=== PATIENT | female | born 1970 | race Caucasian/White ===

== ENCOUNTER 2017-03-18 13:28 | Observation (INO) ==
[2017-03-18] MEDS ORDERED: 0.9 % SODIUM CHLORIDE 1,000 ML IV ONE ×2 (14:02→14:10)
[2017-03-18] MEDS ORDERED: TRANEXAMIC ACID 1,000 MG/10 ML VIAL IV ONE (14:16)
[2017-03-18 14:39] LABS: Basophils # (Auto) 0.1 K/mcL (0.0-0.3); Basophils % (Auto) 0.6 % (0.0-2.0); Eosinophils # (Auto) 0.5 K/mcL (0.0-0.7); Eosinophils % (Auto) 3.7 % (0.0-7.0); Granulocytes % (Auto) 61.4 % (38.0-78.0); Lymphocytes # (Auto) 4.2 K/mcL (1.5-4.8); Lymphocytes % (Auto) 28.4 % (15.5-49.0); Mean Cell Volume 89.6 fL (80.0-100.0); Mean Corpuscular Hemoglobin 29.6 pg (26.0-34.0); Monocytes # (Auto) 0.9 K/mcL (0.1-0.9); Monocytes % (Auto) 5.9 % (1.0-12.0); Platelet Count 294 K/mcL (140-440); RBC 2.24 M/mcL (4.00-5.20); Red Cell Distribution Width 18.7 % (11.5-14.5)
[2017-03-18 14:48] LABS: ALT/SGPT 12 U/l (0-40); Albumin 3.7 gm/dL (3.2-5.2); Albumin/Globulin Ratio 1.2 (1.0-2.3); Alkaline Phosphatase 73 U/L (39-117); Blood Urea Nitrogen 48 mg/dl (6-20)
[2017-03-18] MEDS ORDERED: PHYTONADIONE 10 MG in 0.9 % SODIUM CHLORIDE 50 ML IV ONE (17:15)
--- NOTE | 2017-03-18 17:32 | Emergency Department Note ---
Female Urogenital HPI - General Chief complaint: Weakness Stated complaint: Vaginal bleeding 3 weeks Time Seen by Provider: 03/18/17 13:41 Source: patient Mode of arrival: ambulatory Limitations: no limitations - History of Present Illness HPI Narrative: 47-year-old female with lightheadedness for the last 3 days worse with standing up. She reports being on her menses for the last 3 weeks as well with heavy bleeding soaking up to 10 pads plus tampons daily. Low Blood pressure noted today the 80/50. Does not see an STUNT PERSON but gets her Pap smears with her family doctor. She is on warfarin for atrial fibrillation and is therapeutic - Related Data Home Medications Medication Instructions Recorded Confirmed cholecalciferol (vitamin D3) 2,000 6,000 unit PO QDAY 01/04/17 03/18/17 unit capsule ferrous sulfate 325 mg (65 mg 325 mg PO BID 01/04/17 03/18/17 iron) tablet,delayed release insulin lispro protamine-lispro See Label Instructions SUB-Q QAM 01/04/17 100 unit/mL (75-25) subcutaneous pen magnesium oxide 400 mg capsule 400 mg PO BID 01/04/17 03/18/17 metoprolol succinate ER 100 mg 50 mg PO BID tab 01/04/17 03/18/17 tablet,extended release 24 hr spironolactone 25 mg tablet 25 mg PO QDAY 01/04/17 03/18/17 thiamine HCl (vitamin B1) 100 mg 200 mg PO QDAY tab 01/04/17 03/18/17 tablet warfarin 3 mg tablet 3 mg PO QDAY tab 01/04/17 03/18/17 psyllium seed (sugar) oral powder 1 tbsp PO QDAY 02/05/17 03/18/17 furosemide 40 mg tablet 40 mg PO QDAY tab 03/13/17 03/18/17 Previous Rx's Medication Instructions Recorded Glucometer- Accu-check #1 each 11/29/15 lancets See Dose Instructions .ROUTE 12/01/15 .MEDSUPPLY #100 each blood sugar diagnostic strips See Dose Instructions .ROUTE 02/01/16 .MEDSUPPLY #60 each albuterol sulfate HFA 90 2 puff INHALATION Q6H PRN #18 g 03/05/16 mcg/actuation aerosol inhaler Nebulizer with tubing and #1 each 09/25/16 accessories beclomethasone dipropionate 80 2 puff INHALATION BID #8.7 g 09/27/16 mcg/actuation aerosol inhaler albuterol sulfate 2.5 mg/3 mL 2.5 mg INHALATION .Q4-6H PRN #3 ml 10/01/16 (0.083 %) solution for nebulization lisinopril 10 mg tablet 5 mg PO BID #30 tab 01/04/17 Allergies Allergy/AdvReac Type Severity Reaction Status Date / Time Latex, Natural Rubber Allergy Unknown Unknown Verified 03/18/17 13:34 heparin AdvReac Other Verified 03/18/17 13:34 metformin AdvReac Abdominal Verified 03/18/17 13:34 Pain walnuts Allergy Unknown Unknown Uncoded 03/13/17 14:57 Review of Systems All systems ED: reviewed and negative except as stated. Past Medical History - Past Medical History Attestation: Yes: The following information was validated with the patient. Medical history: Reports: asthma, atrial fibrillation, CHF (Cardiomyopathy), diabetes, hyperlipidemia, hypertension, migraine, other (IBS. Morbid obesity. HIT syndrome) Surgical history ED: Reports: appendectomy, tonsillectomy, other (eye) Psychiatric history: Reports: depression - Social History smoking status: Former smoker Physical Exam Morbidly obese female no acute distress resting comfortably. Appears generally fatigued and weak. Normocephalic atraumatic. Conjunctive are clear sclerae nonicteric. No nasal discharge or congestion. Oropharynx is pink and moist. Neck is supple without lymphadenopathy or thyromegaly or carotid bruit heard heart is regular rate and rhythm no murmurs appreciated. Lungs clear to auscultation bilaterally without wheezes rales rhonchi or respiratory distress. Abdomen soft nontender nondistended except right lower quadrant mild diffuse. No peritoneal signs or guarding. No pedal edema. +2 radial pulse. Alert oriented able to answer questions appropriately - General Limitations: no limitations Course Vital Signs Temperature 97.3 F 03/18/17 13:29 Pulse Rate 79 03/18/17 13:29 Respiratory Rate 16 03/18/17 13:29 Blood Pressure 107/66 03/18/17 13:29 Pulse Oximetry (%) 99 03/18/17 13:29 Temperature 97.9 F 03/19/17 04:00 Pulse Rate 88 03/19/17 04:00 Respiratory Rate 18 03/19/17 04:00 Blood Pressure 97/51 03/19/17 04:00 Pulse Oximetry (%) 97 03/19/17 04:00 Urogenital-Female - Lab Data Lab results reviewed: Yes I reviewed the patient's lab results. Result diagrams: 03/19/17 03:40 03/19/17 03:40 Lab Results 03/18/17 03/18/17 03/18/17 Range/Units 14:06 14:06 14:06 WBC (4.5-11.0) K/mcL RBC (4.00-5.20) M/mcL Hgb (12.0-15.0) g/dL Hct (36.0-48.0) % MCV (80.0-100.0) fL MCH (26.0-34.0) pg MCHC (31.0-36.0) g/dL RDW (11.5-14.5) % Plt Count (140-440) K/mcL MPV (7.4-10.4) fL Gran % (38.0-78.0) % Lymph % (Auto) (15.5-49.0) % Harper % (Auto) (1.0-12.0) % Eos % (Auto) (0.0-7.0) % Baso % (Auto) (0.0-2.0) % Gran # (1.8-8.0) K/mcL Lymph # (1.5-4.8) K/mcL Harper # (0.1-0.9) K/mcL Eos # (0.0-0.7) K/mcL Baso # (0.0-0.3) K/mcL PT 26.3 H (11.9-14.5) sec INR 2.3 H (0.9-1.1) Fibrinogen 580 H (200-400) mg/dL VBG Lactic Acid (0.5-2.2) mmol/L Sodium 134 (133-145) mmol/L Potassium 5.1 (3.3-5.1) mmol/L Chloride 99 (96-108) mmol/L Carbon Dioxide 20 L (22-30) mmol/L Anion Gap 15.0 (8-16) BUN 48 H (6-20) mg/dl Creatinine 1.7 H (0.6-1.1) mg/dl GFR Calculation 35 Glucose 107 H (70-105) mg/dL Calcium 8.9 (8.6-10.4) mg/dl Total Bilirubin < 0.2 (0.0-1.0) mg/dL AST 10 (0-37) U/l ALT 12 (0-40) U/l Alkaline Phosphatase 73 (39-117) U/L NT-Pro-B Natriuret Pep 167.1 H (0-125) pg/ml Total Protein 6.7 (5.9-8.4) gm/dL Albumin 3.7 (3.2-5.2) gm/dL Globulin 3.0 (2.2-3.7) gm/dL Albumin/Globulin Ratio 1.2 (1.0-2.3) 03/18/17 03/18/17 Range/Units 14:07 14:21 WBC 14.7 H (4.5-11.0) K/mcL RBC 2.24 L (4.00-5.20) M/mcL Hgb 6.6 L* (12.0-15.0) g/dL Hct 20.0 L* (36.0-48.0) % MCV 89.6 (80.0-100.0) fL MCH 29.6 (26.0-34.0) pg MCHC 33.0 (31.0-36.0) g/dL RDW 18.7 H (11.5-14.5) % Plt Count 294 (140-440) K/mcL MPV 9.1 (7.4-10.4) fL Gran % 61.4 (38.0-78.0) % Lymph % (Auto) 28.4 (15.5-49.0) % Harper % (Auto) 5.9 (1.0-12.0) % Eos % (Auto) 3.7 (0.0-7.0) % Baso % (Auto) 0.6 (0.0-2.0) % Gran # 9.0 H (1.8-8.0) K/mcL Lymph # 4.2 (1.5-4.8) K/mcL Harper # 0.9 (0.1-0.9) K/mcL Eos # 0.5 (0.0-0.7) K/mcL Baso # 0.1 (0.0-0.3) K/mcL PT (11.9-14.5) sec INR (0.9-1.1) Fibrinogen (200-400) mg/dL VBG Lactic Acid 0.9 (0.5-2.2) mmol/L Sodium (133-145) mmol/L Potassium (3.3-5.1) mmol/L Chloride (96-108) mmol/L Carbon Dioxide (22-30) mmol/L Anion Gap (8-16) BUN (6-20) mg/dl Creatinine (0.6-1.1) mg/dl GFR Calculation Glucose (70-105) mg/dL Calcium (8.6-10.4) mg/dl Total Bilirubin (0.0-1.0) mg/dL AST (0-37) U/l ALT (0-40) U/l Alkaline Phosphatase (39-117) U/L NT-Pro-B Natriuret Pep (0-125) pg/ml Total Protein (5.9-8.4) gm/dL Albumin (3.2-5.2) gm/dL Globulin (2.2-3.7) gm/dL Albumin/Globulin Ratio (1.0-2.3) - EKG Data EKG attestation: Yes I reviewed and interpreted this EKG. EKG results narrative: EKG shows a rate of 76 normal sinus rhythm low voltage leads though. No evidence for ischemia Disposition Clinical Impression: Menometrorrhagia Summary: Found to be weak and lightheaded from low blood pressure secondary to hemorrhagic anemia-this secondary to metromenorrhagia. Fluid resuscitation with normal saline initiated. Then did 1000 mg of Tranexamic acid. INR was 2.3 but in light of her current bleeding, gave 10 mg vitamin K IV. Discussed situation with Dr. Calderon, STUNT PERSON, who agreed with management plan above plus transfusion-which was ordered and transfused to hold to packed red blood cells. Blood pressure stabilized with above-noted interventions and patient noted that her flow decreased markedly Discussed situation as well with Dr. Price, who agreed to accept the patient for confusion and further care on condition of Dr. Calderon's consult. Dr. Price contacted Dr. Calderon directly and patient was admitted Disposition: Xfer As Outpt/Obs ([facility]) Condition: Serious
--- NOTE | 2017-03-18 17:54 | Internal Med History&Physical ---
Medical - H&P: HPI Patient information: Note initiated : 03/18/17 at 5:42 pm Service Date, if different from initiated Date: [] Patient: Yseica Helms 47 y/o F admitted on for Vaginal bleeding 3 weeks. Chief Complaint: [] Chief complaint: Dizziness/ Weakness/ Bleeding per Vagina. History of present illness: Ms. Helms is a 47 year old female with h/o non ischemic cardiomyopathy, Aflutter , DM, morbid obesity, presents to the ER with weakness, dizziness and bleeding per vagina. The patient has been diagnosed with CHF in the last 6-8 months, she was placed on coumadin, which has remained subtherapeutic untill approx 2 months ago. The patient notes that when she became therapeutic her periods started to become heavy. She usually has heavy periods, lasting 4 days, however her last period was 14 days, with very heavy bleeding, and the present one has not stopped for 3 weeks, she is using 10 pads and 10 tampons, and passing heavy clots, some of which are fist size. She has not been feeling well for last few days, with weakness, tiredness, some nausea and dizziness. she was seen in the ER in [facility] and thought to have some ear infection. Symptomatic treatment given, Hb was 10.7 on 03/13. given her worsening symptoms she presented here in the ER and she was noted to have hb of 6.6. INR is therapeutic Chart review shows she has CT abdomen pelvis which showed a 7 cm cystic mass in the left adnexa last year, Pelvic USG showed a 5mm endometrium and 5.1x5.3 adnexal cyst probably benigh. Echo done 12/14 LVEF 25%, Cath in nov shows mild cad. All systems: reviewed and no additional remarkable complaints except as stated ( as mentioned in the HPI.) Medical - H&P: [place] Medical history: Medical History (Last Updated 03/18/17 @ 17:54 by Jason Price MD) Atrial flutter (Acute) Acute embolism and thrombosis of superficial veins of unspecified upper extremity (Chronic) Agoraphobia, unspecified (Chronic) Asthma (Chronic) Congestive heart failure (Chronic) Depression (Chronic) Diabetes mellitus, type II (Chronic) Dilated cardiomyopathy (Chronic) Heparin-induced thrombocytopenia (Chronic) Hyperlipidemia (Chronic) Hypertension (Chronic) IBS (irritable bowel syndrome) (Chronic) Migraine (Chronic) Obesity, morbid (Chronic) Seasonal allergies (Chronic) Acute kidney failure, unspecified (Resolved) Asthma with exacerbation (Resolved) Atherosclerotic heart disease of [place] coronary artery without angina pectoris (Resolved) Bronchitis (Resolved) Cardiogenic shock (Resolved) Cat bite of right lower leg (Resolved) Chest pain (Resolved) Diplopia (Resolved) Dysmenorrhea (Resolved) Encounter for palliative care (Resolved) Encounter for wellness examination (Resolved) Morbid (severe) obesity due to excess calories (Resolved) Other assisted (current) drug therapy (Resolved) Other secondary pulmonary hypertension (Resolved) Personal history of nicotine dependence (Resolved) Post-traumatic stress disorder, unspecified (Resolved) Urinary tract infection (Resolved) Surgical history: Past Surgical History (Last Updated 03/14/17 @ 14:15 by [place]) History of appendectomy (Chronic) History of eye surgery (Chronic) History of left heart catheterization (Chronic 12/05/16) History of right heart catheterization (Chronic 11/23/16) Pertinent family history: Family history of DM Fragile X syndrome 2 sisteres, pt has it too. Medical - H&P: Meds Home Medications Medication Instructions Recorded Confirmed Type Glucometer- Accu-check #1 each 11/29/15 02/05/17 Rx lancets See Dose Instructions .ROUTE 12/01/15 02/05/17 Rx .MEDSUPPLY #100 each blood sugar diagnostic strips See Dose Instructions .ROUTE 02/01/16 02/05/17 Rx .MEDSUPPLY #60 each albuterol sulfate HFA 90 2 puff INHALATION Q6H PRN #18 g 03/05/16 03/13/17 Rx mcg/actuation aerosol inhaler Nebulizer with tubing and #1 each 09/25/16 02/05/17 Rx accessories beclomethasone dipropionate 80 2 puff INHALATION BID #8.7 g 09/27/16 03/13/17 Rx mcg/actuation aerosol inhaler albuterol sulfate 2.5 mg/3 mL 2.5 mg INHALATION .Q4-6H PRN #3 ml 10/01/16 Rx (0.083 %) solution for nebulization cholecalciferol (vitamin D3) 2,000 6,000 unit PO QDAY 01/04/17 03/13/17 History unit capsule ferrous sulfate 325 mg (65 mg 325 mg PO BID 01/04/17 03/13/17 History iron) tablet,delayed release insulin lispro protamine-lispro See Label Instructions SUB-Q QAM 01/04/17 History 100 unit/mL (75-25) subcutaneous pen lisinopril 10 mg tablet 5 mg PO BID #30 tab 01/04/17 03/13/17 Rx magnesium oxide 400 mg capsule 400 mg PO BID 01/04/17 03/13/17 History metoprolol succinate ER 100 mg 50 mg PO BID tab 01/04/17 03/13/17 History tablet,extended release 24 hr spironolactone 25 mg tablet 25 mg PO QDAY 01/04/17 03/13/17 History thiamine HCl (vitamin B1) 100 mg 200 mg PO QDAY tab 01/04/17 03/13/17 History tablet warfarin 3 mg tablet 6 mg PO QDAY tab 01/04/17 03/13/17 History psyllium seed (sugar) oral powder 1 tbsp PO QDAY 02/05/17 03/13/17 History furosemide 40 mg tablet 40 mg PO QDAY tab 03/13/17 03/13/17 History Allergies Allergy/AdvReac Type Severity Reaction Status Date / Time Latex, Natural Rubber Allergy Unknown Unknown Verified 03/18/17 13:34 heparin AdvReac Other Verified 03/18/17 13:34 metformin AdvReac Abdominal Verified 03/18/17 13:34 Pain walnuts Allergy Unknown Unknown Uncoded 03/13/17 14:57 Medical - H&P: Exam - Constitutional Vitals: Temp Pulse Resp BP Pulse Ox 97.3 F 87 16 104/51 100 03/18/17 13:29 03/18/17 17:32 03/18/17 17:32 03/18/17 17:32 03/18/17 17:32 Exam: GENERAL: The patient is a well-developed, well-nourished in no apparent distress. Is alert and oriented x3. Morbidly obese VITAL SIGNS: Reviewed and as noted elsewhere. HEENT: Head is normocephalic and atraumatic. Extraocular muscles are intact. Pupils are equal, round, and reactive to light. Nares appeared normal. Mouth appears any without lesions. Mucous membranes are dry and pale. NECK: Normal to inspection, Supple, No lymphadenopathy or thyromegaly. LUNGS: Air entry equal on both sides, no wheezing, crackles or rhonchi noted. No accessory muscles of respiration HEART: normal rate, irregular rhythm, S1 and S2 heard, no Gallop, S3 or Rub Noted. ABDOMEN: Soft, Positive bowel sounds. No obvious hepatosplenomegaly was noted. Large pennus, chr left lower quadrant tenderness. EXTREMITIES: No cyanosis, clubbing, rash, lesions or edema. NEUROLOGIC: Cranial nerves II through XII are grossly intact. Motor and Sensory System Grossly Intact PSYCHIATRIC: Normal affect, Normal Mood. Appropriate Behavior. SKIN: No ulceration or wounds noted, No jaundice, No rash noted. significant pallor noted. Medical - H&P: [place] - Labs CBC & Chem 7: 03/18/17 14:07 03/18/17 14:06 Labs: Short CBC 03/18/17 Range/Units 14:07 WBC 14.7 H (4.5-11.0) K/mcL Hgb 6.6 L* (12.0-15.0) g/dL Hct 20.0 L* (36.0-48.0) % Plt Count 294 (140-440) K/mcL BMP 03/18/17 14:06 Sodium 134 Potassium 5.1 Chloride 99 Carbon Dioxide 20 L BUN 48 H Creatinine 1.7 H Glucose 107 H Calcium 8.9 Liver Function 03/18/17 Range/Units 14:06 Total Bilirubin < 0.2 (0.0-1.0) mg/dL AST 10 (0-37) U/l ALT 12 (0-40) U/l Alkaline Phosphatase 73 (39-117) U/L Albumin 3.7 (3.2-5.2) gm/dL Medical - H&P: A/P - Narrative A/P Narrative: A/P Acute blood loss anemia: Hb 6.6, acute drop in CHF patient, transfuse pRBC 3 units total to try to get to hb of around 9 given h/o severe chf and acute loss of blood. . Monitor on tele given her h/o heart failure and significant anemia. 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 Chronic Anticoagulation: INR 2.3, vit K given, monitor INR, Atrial Flutter: On beta blockers, rate controlled, resume same once dose confirmed, will try to get in touch with Dr jorge in AM for guidance, his office was closed when I called today. Non ischemic Cardiomyopathy: Will resume home meds once confirmed, monitor on tele. CKD: Creat 1.7, follows with Dr Monroy in the clinic, will monitor, expect renal function to worsen given hypotensive on presentation. DM: on insulin, Sliding scale protocol for now. Morbid Obesity DVT prophylaxis: SCD for now, h/o RODRIGUE Diet: Cardiac, diabetic diet Full code for now. Social History - Social History adopted: No caregiver/support person: No foster care: No household members: spouse, family housing: house lives independently: Yes marital status: education level: high school service: No chcf: No occupational status: disabled pets and animals: Yes hx recent travel: No sexually active: Yes - Pets pets and animals: cat(s), dog(s) - Tobacco smoking status: Former smoker - Alcohol alcohol intake frequency: holiday/special occasion only - Substance use substance use type: does not use
[2017-03-18] MEDS ORDERED: ONDANSETRON 4 MG/2 ML VIAL IV PRN (18:31)
[2017-03-18] MEDS ORDERED: MAGNESIUM HYDROXIDE 30 ML ORAL.SUSP PO PRN (18:31)
[2017-03-18] MEDS ORDERED: 0.9 % SODIUM CHLORIDE 250 ML IV SCH (18:31)
[2017-03-18] MEDS ORDERED: NALOXONE HCL 0.4 MG/ML VIAL IV PRN (18:31)
[2017-03-18] MEDS ORDERED: DEXTROSE 50% 50 ML VIAL IV PRN (18:31)
[2017-03-18] MEDS: INSULIN LISPRO 1 UNIT/0.01 ML UNIT SQ SCH (20:55)
[2017-03-18] MEDS ORDERED: ALBUTEROL SULFATE 2.5 MG/3 ML NEBULIZER NEB PRN (21:02)
[2017-03-18] MEDS: LISINOPRIL 10 MG TABLET PO SCH (21:30)
[2017-03-18] MEDS: METOPROLOL SUCCINATE 50 MG TAB.XL.24H PO SCH (21:35)
[2017-03-18] MEDS: BECLOMETHASONE DIPROPIONATE INH SCH (21:35)
--- NOTE | 2017-03-18 22:44 | Consultation ---
DATE OF CONSULTATION: 03/18/2017 CHIEF COMPLAINT: Heavy vaginal bleeding, fatigue, anemia. HISTORY: This patient is a 47-year-old, nulligravid female presenting to the emergency room after being seen for cardio therapy today at [facility] in [place], and because of feeling poorly was told to go the emergency room. The patient has had heavy vaginal bleeding for the past 2 to 3 weeks, starting approximately 03/02, although is somewhat fleet technician today. She goes through at least 10 pads per day and also has to use tampons. Her blood count in the emergency room showed hemoglobin of 6.6. She had been seen in the [facility] ER on 03/12 with a hemoglobin of 10.1. The patient notes increasing lightheadedness for the past 5 days with visual changes and fatigue. Prior to January, she had regular menstrual cycles that were heavy and lasted 4 days. She and her feel that her menstrual cycles are heavier now that she is on Coumadin. She was admitted in the ICU in November of this year due to congestive heart failure. She also notes significant uterine cramping and is not using any control. She had an ultrasound and CT scan over a year ago because abdominal pain. The ultrasound showed an enlarged uterus measuring 5 x 6.4 x 9.2 cm with at least 2 fibroids, the largest measuring up to 2.5 cm. They were located in the mid body and in a subserosal location in the upper fundus. There also appears to be a small submucosal fibroid in the upper fundal area. The endometrium at that point was 5.8 mm with no fluid in the endometrial canal. The right ovary measured up to 4.5 cm in size with a septated cyst measuring 1.4 cm. The left ovary was not clearly visualized, but in the left upper pelvis, seen only transabdominally, there was a circumscribed cyst with benign features measuring 5.3 cm. This had a thin wall with no ovarian tissue appreciated. She has not had any followup ultrasound studies since that ultrasound in January 2016. She is currently admitted under the care of hospitalist of Dr. Price for transfusion and has received tranexamic acid intravenously from the Emergency Room physician. She is hopeful to obtain cardiac ablation for her atrial fibrillation when she has further cardiac rehabilitation. PAST MEDICAL HISTORY: 1. Congestive heart failure, diagnosed in May 2016. 2. Type 2 diabetes, now on insulin for the past 5 months, diagnosed 2 to 3 years ago. 3. Atrial fibrillation. 4. Morbid obesity. PAST SURGICAL HISTORY: 1. Appendectomy. 2. Tonsillectomy and adenoidectomy. 3. Eye surgery as a child. CURRENT MEDICATIONS: Ferrous sulfate 325 mg 1 tablet twice daily. Furosemide 40 mg 1 tablet daily. Insulin lispro 75/25 at 24-48 units under the skin 2 times daily with breakfast and dinner. Lisinopril 5 mg by mouth twice daily. Magnesium oxide 400 mg 1 tablet by mouth twice daily. Metoprolol 100 mg ER tablets 50 mg twice daily. Potassium chloride 20 mEq CR tablet 20 mg by mouth. every day QVAR 80 mcg per puff inhaler 2 times daily. Spironolactone 25 mg 1 tablet by mouth daily. Thiamine 100 mg 2 tablets by mouth daily. Warfarin 3 mg tablets one tablet at bedtime. DRUG ALLERGIES: HEPARIN, MORPHINE SULFATE. OB HISTORY: The patient is nulligravid. Menarche occurred at age 13. She had regular menses that were occasionally heavy, as noted above. There is no history of STDs or cervical dysplasia. SOCIAL HISTORY: The patient is disabled and unemployed. She denies current tobacco use and quit in 1987. Prior to that, she smoked about a pack per week for 4 years. She drinks alcohol rarely and denies recreational drug use. FAMILY HISTORY: Diabetes, heart problems. REVIEW OF SYSTEMS: The patient complains of fatigue, shortness of breath, but no chest pain. She is dizzy. Denies headache. Review of systems otherwise negative. PHYSICAL EXAMINATION: VITAL SIGNS: 5 feet 3 inches, 306 pounds. Blood pressure 107/66, pulse 79, respiratory rate 16, temperature 97.3. GENERAL: She is a pleasant, obese female lying comfortably in bed. HEAD AND NECK: Exam is within normal limits. There is no thyromegaly appreciated. HEART: Regular rate and rhythm. LUNGS: Clear to auscultation with normal inspiratory effort. BREAST EXAM: Deferred. ABDOMEN: Morbidly obese, tender in the midline and right lower quadrant. EXTREMITY EXAM: Appears normal. PELVIC EXAM: Deferred due to lack of appropriate exam room for this evaluation. IMPRESSION: 1. Menometrorrhagia with severe anemia. 2. History of uterine fibroids. 3. History of a 5 cm left adnexal cyst, possibly ovarian. 4. Congestive heart failure. 5. Atrial fibrillation. 6. Morbid obesity. 7. Type 2 diabetes requiring insulin. PLAN: The patient will be admitted for observation and receive 2 units of packed red blood cells. She has received tranexamic acid IV with decreased vaginal bleeding and then this will be closely monitored. There would also be an option to use oral estrogen or IV estrogen. This could be in the form of IV Premarin or oral Premarin or estradiol in high doses to further decrease her heavy vaginal bleeding. Following discharge, I would recommend a pelvic exam and endometrial biopsy. I would also recommend a pelvic ultrasound while the patient is admitted for observation to further evaluate this left adnexal cyst and for any changes in the uterine size with fibroids. I discussed with the patient and her significant other, other treatment options beyond her hospitalization and this will be determined after gynecologic outpatient to follow up. RAYSHAWN:sai Job ID: [id number] Doc ID: [id number] Tyrese MILLER
[2017-03-19] MEDS: ACETAMINOPHEN 325 MG TABLET PO PRN ×3 (00:35→09:21)
[2017-03-19 06:04] LABS: Mean Cell Volume 89.9 fL (80.0-100.0); Mean Corpuscular HGB Conc 33.4 g/dL (31.0-36.0); Platelet Count 243 K/mcL (140-440); RBC 2.55 M/mcL (4.00-5.20); Red Cell Distribution Width 17.1 % (11.5-14.5)
[2017-03-19 06:29] LABS: ALT/SGPT 10 U/l (0-40); Albumin 3.2 gm/dL (3.2-5.2); Albumin/Globulin Ratio 1.2 (1.0-2.3); Alkaline Phosphatase 66 U/L (39-117); Bilirubin,Direct < 0.2 mg/dL (0.0-0.3); Blood Urea Nitrogen 36 mg/dl (6-20); Gamma Glutamyl Transpeptidase 29 U/L (5-36); Magnesium 2.2 mg/dL (1.6-2.5); Uric Acid 11.9 mg/dL (2.5-8.0)
[2017-03-19] MEDS ORDERED: 0.9 % SODIUM CHLORIDE 250 ML IV SCH (07:00)
[2017-03-19 07:40] LABS: Anisocytosis 1+ (NONE SEEN); Basophils % (Manual) 1 % (0-2); Eosinophils % (Manual) 7 % (0-7); Lymphocytes % 21 % (15-49); Monocytes % (Manual) 3 % (1-12); Platelet Estimate NORMAL (NORMAL); RBC Morphology ABNORM (NORMAL); Segmented Neutrophils % 68 % (38-78)
[2017-03-19] MEDS: FERROUS SULFATE 325 MG TABLET PO SCH ×2 (08:29→17:07)
[2017-03-19] MEDS: INSULIN LISPRO 1 UNIT/0.01 ML UNIT SQ SCH ×4 (08:30→21:17)
[2017-03-19] MEDS: MAGNESIUM OXIDE 400 MG TABLET PO SCH ×2 (09:56→21:17)
[2017-03-19] MEDS: LISINOPRIL 10 MG TABLET PO SCH ×2 (09:57→21:17)
[2017-03-19] MEDS: SPIRONOLACTONE 25 MG TABLET PO SCH (09:57)
[2017-03-19] MEDS: THIAMINE 100 MG TABLET PO SCH (10:04)
[2017-03-19] MEDS: FUROSEMIDE 40 MG TABLET PO SCH (10:04)
[2017-03-19] MEDS: VITAMIN D3 5,000 UNIT CAPSULE PO SCH (10:04)
[2017-03-19] MEDS: BECLOMETHASONE DIPROPIONATE INH SCH ×2 (10:05→21:18)
[2017-03-19] MEDS: METOPROLOL SUCCINATE 50 MG TAB.XL.24H PO SCH ×2 (10:05→21:17)
[2017-03-19] MEDS ORDERED: HYDROmorphone 2 MG/ML SYRINGE IV PRN (12:24)
[2017-03-19] MEDS ORDERED: FUROSEMIDE 40 MG/4 ML VIAL IV ONE ×2 (12:29→12:31)
[2017-03-19] MEDS ORDERED: IPRATROPIUM/ALBUTEROL 3 ML AMPUL.NEB NEB ONE (12:32)
[2017-03-19] MEDS: IPRATROPIUM/ALBUTEROL 3 ML AMPUL.NEB NEB SCH ×4 (12:53→22:00)
--- NOTE | 2017-03-19 13:11 | XRay Report ---
CLINICAL INFORMATION: Shortness of breath COMPARISON: 11/21/2016 FINDINGS: Mild cardiomegaly is noted. Mediastinum and pulmonary vessels are normal. There is mild airspace disease in the right base - likely atelectasis. No effusions. IMPRESSION: Mild airspace disease right base, likely atelectasis, otherwise normal Interpreted and Authenticated by: Mark Schaeffer 03/19/17
[2017-03-19] MEDS: methylPREDNISolone SOD SUCC 125 MG/2 ML VIAL IV SCH ×3 (14:37→22:25)
--- NOTE | 2017-03-19 15:03 | Internal Med Progress Note ---
Medical - PN: Subj Patient information: Note initiated : 03/19/17 at 2:57 pm Service Date, if different from initiated Date: [] Patient: Yesica Helms 47 y/o F admitted on 03/18/17 for Vaginal Bleeding 3 Weeks/Menometrorrhagia. Chief Complaint: [] Interval history: Ms. Helms is a 47 year old female with h/o non ischemic cardiomyopathy, Aflutter , DM, morbid obesity, presents to the ER with weakness, dizziness and bleeding per vagina. The patient has been diagnosed with CHF in the last 6-8 months, she was placed on coumadin, which has remained subtherapeutic untill approx 2 months ago. The patient notes that when she became therapeutic her periods started to become heavy. She usually has heavy periods, lasting 4 days, however her last period was 14 days, with very heavy bleeding, and the present one has not stopped for 3 weeks, she is using 10 pads and 10 tampons, and passing heavy clots, some of which are fist size. She has not been feeling well for last few days, with weakness, tiredness, some nausea and dizziness. she was seen in the ER in [facility] and thought to have some ear infection. Symptomatic treatment given, Hb was 10.7 on 03/13. given her worsening symptoms she presented here in the ER and she was noted to have hb of 6.6. INR is therapeutic Chart review shows she has CT abdomen pelvis which showed a 7 cm cystic mass in the left adnexa last year, Pelvic USG showed a 5mm endometrium and 5.1x5.3 adnexal cyst probably benigh. Echo done 12/14 LVEF 25%, Cath in nov shows mild cad. 03/19: patient seen examined, labs reviewed and discussed with pt and significant other, she was doing well this AM however later in the morning she developed shortness of breath, chest tightness while on the second unit of blood. she was to receive 2 additional units of blood because her hb was 7.6 this AM She tolerated the first unit ok, during the infusion of the second unit of blood the patient developed chest tightness, shortness of breath, she was cyring and sobbing. The patient also reported closing of airways. I examined the patient, she had poor air entry. prolonged exp phase, she was anxious, but not in respiratory distress, her oral pharayngeal mucosa was normal , no stridor was noted. blood transfusion halted, CXR done (neg) duonebs given, IV steroids given. EKG and trop was neg. Patient later informed that she has had a similar episode to a perfume in the past and its likely this is what happened. the patient responded to treatment within 30 mins and was back to baseline. She has not had any PV bleeding since this AM. Pertinent ROS: Denies headache, dizziness chest tightness present, no chest pain Denies cough but present shortness of breath this AM Denies abdominal pain, nausea or vomiting. - Constitutional Vitals: Vital Signs Temp Pulse Resp BP Pulse Ox 97.6 F 78 18 105/43 98 03/19/17 12:00 03/19/17 12:54 03/19/17 12:00 03/19/17 12:00 03/19/17 12:53 Period Temp Pulse Resp BP Sys/Hill Pulse Ox Last 24 Hr 97.6 F-98.6 F 78-94 16-18 96-105/43-64 96-100 Intake and Output 03/19/17 03/19/17 03/19/17 05:59 13:59 21:59 Output Total 1100 / 1100 650 / 650 200 / 200 Balance -1100 / -1100 -650 / -650 -200 / -200 Intake & Output: Intake & Output 03/19/17 03/19/17 03/19/17 05:59 13:59 21:59 Output Total 1100 / 1100 650 / 650 200 / 200 Balance -1100 / -1100 -650 / -650 -200 / -200 Output: Void Amount 1100 / 1100 650 / 650 200 / 200 Other: # Voids 1 1 # Bowel Movements 1 1 Exam: Constitutional; Afebrile, cooperative, alert, not in distress. Eyes- No icterus, , No periorbital swelling Ears- Ext ear normal, hearing normal to conversation. Neck- Midline trachea, supple Respiratory system: Air Entry decreased on both sides, prolonged exp phase, no crackles CVS- Rate rhythm regular, S1,S2 heard, no gallop, no rub. Abdomen- Soft nontender abdomen, no organomegaly, no tenderness, no guarding or rigidity, FIELD BROOMER- AOOx3, moving all extremities, no gross focal deficit noted. Medical - PN: Obj Da - Labs CBC & Chem 7: 03/19/17 03:40 03/19/17 03:40 Labs: Abnormal Lab Results 03/19/17 03/19/17 03/19/17 03:45 03:40 03:40 WBC 13.8 H RBC 2.55 L Hgb 7.6 L Hct 22.9 L RDW 17.1 H RBC Morphology Abnorm A Polychromasia Few A Anisocytosis 1+ A PT 16.2 H INR 1.3 H Carbon Dioxide 19 L BUN 36 H Creatinine 1.3 H Glucose 108 H Uric Acid 11.9 H Phosphorus 4.6 H Total Protein 5.8 L Triglycerides 206 H 03/18/17 20:50 WBC RBC Hgb 8.0 L Hct 24.6 L RDW RBC Morphology Polychromasia Anisocytosis PT INR Carbon Dioxide BUN Creatinine Glucose Uric Acid Phosphorus Total Protein Triglycerides Meds: Medications Acetaminophen (Tylenol) 650 mg PO Q6HP PRN PRN Reason: PAIN/FEVER > 101 Last Admin: 03/19/17 09:21 Dose: 650 mg Albuterol Sulfate (Ventolin) 2.5 mg NEB Q4-6HP PRN PRN Reason: shortness of breath/wheezing Albuterol/Ipratropium (Duoneb) 3 ml NEB Q4HRT [facility] Last Admin: 03/19/17 12:53 Dose: Not Given Dextrose (Dextrose 50%) 0 ml IV UD PRN PRN Reason: Hypoglycemia Diagnostic Test (Pha) (Accu-Chek) [address] [facility] Last Admin: 03/19/17 12:13 Dose: 1 each Ferrous Sulfate (Ferrous Sulfate) 325 mg PO BIDCC [facility] Last Admin: 03/19/17 08:29 Dose: 325 mg Furosemide (Lasix) 40 mg PO QDAY [facility] Last Admin: 03/19/17 10:04 Dose: 40 mg Hydromorphone HCl (Dilaudid) 0.5 mg IV Q2HP PRN PRN Reason: Pain Sodium Chloride (Sodium Chloride 0.9%) 250 mls @ 20 mls/hr IV .[id number] [facility] Stop: 03/19/17 19:29 Last Admin: 03/19/17 09:21 Dose: 20 mls/hr Insulin Human Lispro (Humalog) [address] [facility] PRN Reason: Protocol Last Admin: 03/19/17 12:14 Dose: Not Given Lisinopril (Zestril) 5 mg PO BID [facility] Last Admin: 03/19/17 09:57 Dose: 5 mg Magnesium Hydroxide (Milk Of Magnesia) 30 ml PO DAILYP PRN PRN Reason: Constipation Magnesium Oxide (Magnesium Oxide) 400 mg PO BID [facility] Last Admin: 03/19/17 09:56 Dose: 400 mg Methylprednisolone Sodium Succinate (Solu-Medrol) 62.5 mg IV Q8 [facility] Last Admin: 03/19/17 14:37 Dose: 62.5 mg Metoprolol Succinate (Toprol Xl) 50 mg PO BID [facility] Last Admin: 03/19/17 10:05 Dose: 50 mg Naloxone HCl (Narcan) 0.1 mg IV Q2MIN PRN PRN Reason: Opiate Reversal Ondansetron HCl (Zofran) 4 mg IV Q4HP PRN PRN Reason: Nausea And Vomiting Beclomethasone Dipropionate Oral Inhlaer 2 dose INH BID [facility] Last Admin: 03/19/17 10:05 Dose: Not Given Spironolactone (Aldactone) 25 mg PO QDAY [facility] Last Admin: 03/19/17 09:57 Dose: 25 mg Thiamine HCl (Vitamin B1) 200 mg PO DAILY [facility] Last Admin: 03/19/17 10:04 Dose: 200 mg Vitamin D (Vitamin D3) 5,000 unit PO DAILY [facility] Last Admin: 03/19/17 10:04 Dose: 5,000 unit Medical - PN: A/P - Time Spent With Patient Total time spent is greater than 50% in coordination of care (as documented) at patient's floor/unit and/or counseling patient: - Narrative A/P Narrative: Acute blood loss anemia: Hb 7.6 this AM, another unit given, plus some of the second unit. patient appears much better, seems hemodynamically stable. Reactive airway disease: Due to perfume vs blood transfusion. 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 Dysfunctional Uterine bleed: BONDING AGENT consult appreciated. Bleed has stopped. Chronic Anticoagulation: INR 1.3, s/p vit k Atrial Flutter: On beta blockers, rate controlled, will follow up with cardiology on discharge. Non ischemic Cardiomyopathy: home meds resumed. CKD: Creat 1.3 improved, monitor DM: on insulin, Sliding scale protocol for now. Morbid Obesity DVT prophylaxis: SCD for now, h/o RODRIGUE Diet: Cardiac, diabetic diet Full code Medical - PN: Qual - VTE Deep Vein Thrombosis/Pulmonary Embolism Present on Admission: No
[2017-03-19 15:29] LABS: Mean Corpuscular HGB Conc 33.3 g/dL (31.0-36.0); Mean Corpuscular Hemoglobin 29.7 pg (26.0-34.0); Platelet Count 256 K/mcL (140-440); RBC 3.18 M/mcL (4.00-5.20); Red Cell Distribution Width 17.1 % (11.5-14.5)
[2017-03-20] MEDS: IPRATROPIUM/ALBUTEROL 3 ML AMPUL.NEB NEB SCH ×4 (02:39→15:44)
[2017-03-20 05:34] LABS: Mean Cell Volume 89.6 fL (80.0-100.0); Mean Corpuscular HGB Conc 33.5 g/dL (31.0-36.0); Platelet Count 255 K/mcL (140-440); RBC 3.17 M/mcL (4.00-5.20)
[2017-03-20] MEDS: methylPREDNISolone SOD SUCC 125 MG/2 ML VIAL IV SCH ×2 (05:40→13:50)
[2017-03-20 06:09] LABS: ALT/SGPT 11 U/l (0-40); Albumin 3.7 gm/dL (3.2-5.2); Albumin/Globulin Ratio 1.1 (1.0-2.3); Alkaline Phosphatase 73 U/L (39-117); Bilirubin,Direct < 0.2 mg/dL (0.0-0.3); Blood Urea Nitrogen 37 mg/dl (6-20); Gamma Glutamyl Transpeptidase 34 U/L (5-36); Magnesium 1.9 mg/dL (1.6-2.5); Uric Acid 13.5 mg/dL (2.5-8.0)
[2017-03-20 07:39] LABS: Anisocytosis 1+ (NONE SEEN); Band Neutrophils % 3 % (0-10); Lymphocytes % 10 % (15-49); Macrocytosis 1+ (NONE SEEN); Monocytes % (Manual) 1 % (1-12); Platelet Estimate NORMAL (NORMAL); RBC Morphology ABNORM (NORMAL); Segmented Neutrophils % 86 % (38-78)
[2017-03-20] MEDS: INSULIN LISPRO 1 UNIT/0.01 ML UNIT SQ SCH ×3 (07:45→17:07)
[2017-03-20] MEDS ORDERED: TRANEXAMIC ACID 1,000 MG/10 ML VIAL IV ONE (09:10)
[2017-03-20] MEDS: SPIRONOLACTONE 25 MG TABLET PO SCH (09:10)
[2017-03-20] MEDS: THIAMINE 100 MG TABLET PO SCH (09:11)
[2017-03-20] MEDS: VITAMIN D3 5,000 UNIT CAPSULE PO SCH (09:11)
[2017-03-20] MEDS: LISINOPRIL 10 MG TABLET PO SCH ×2 (09:11→09:15)
[2017-03-20] MEDS: FERROUS SULFATE 325 MG TABLET PO SCH ×2 (09:11→17:10)
[2017-03-20] MEDS: METOPROLOL SUCCINATE 50 MG TAB.XL.24H PO SCH (09:12)
[2017-03-20] MEDS: FUROSEMIDE 40 MG TABLET PO SCH (09:12)
[2017-03-20] MEDS: BECLOMETHASONE DIPROPIONATE INH SCH (09:12)
[2017-03-20] MEDS: MAGNESIUM OXIDE 400 MG TABLET PO SCH (09:12)
[2017-03-20 09:41] LABS: Appearance,Urine CLEAR; Bacteria,Urine 0 /hpf (0); Bilirubin,Urine NEG (NEG); Color,Urine YELLOW; Glucose,Urine (UA) >=500 mg/dL (NEG); Leukocyte Esterase,Urine 500 /uL (NEG); Mucus,Urine FEW /hpf (0); Nitrate,Urine NEG (NEG); Protein,Urine NEG (NEG); Specific Gravity,Urine 1.015 (1.000-1.035); Urine Blood >=1.0 mg/dL (<0.03); Urine Hyaline Cast 6 /lpf (0-2); Urine RBC 4 /hpf (0-1); Urine Squamous Epithelial Cell 1 /hpf (0-4); Urine WBC 21 /hpf (0-4); Urobilinogen,Urine NEG (NEG)
[2017-03-20] MEDS ORDERED: cefTRIAXone 1 GM in DEXTROSE 5% IN WATER 50 ML IV SCH (11:00)
[2017-03-20 14:40] LABS: Basophils # (Auto) 0 K/mcL (0.0-0.3); Basophils % (Auto) 0 % (0.0-2.0); Eosinophils # (Auto) 0 K/mcL (0.0-0.7); Eosinophils % (Auto) 0 % (0.0-7.0); Granulocytes % (Auto) 90.5 % (38.0-78.0); Lymphocytes # (Auto) 1.7 K/mcL (1.5-4.8); Lymphocytes % (Auto) 7.5 % (15.5-49.0); Mean Cell Volume 90.1 fL (80.0-100.0); Mean Corpuscular HGB Conc 33.4 g/dL (31.0-36.0); Mean Corpuscular Hemoglobin 30.1 pg (26.0-34.0); Monocytes # (Auto) 0.5 K/mcL (0.1-0.9); Platelet Count 306 K/mcL (140-440); RBC 3.32 M/mcL (4.00-5.20)
[2017-03-20 14:59] LABS: Blood Urea Nitrogen 40 mg/dl (6-20)
--- NOTE | 2017-03-20 16:14 | Discharge Summary ---
Medical - DS: Prov Patient information: Note initiated : 03/20/17 at 4:11 pm Service Date, if different from initiated Date: [] Patient: Yesica Helms 47 y/o F admitted on 03/18/17 for Vaginal Bleeding 3 Weeks/Menometrorrhagia. Chief Complaint: [] Date of admission: 03/18/17 18:24 Discharge date: 03/20/17 Primary care physician: Sheri Mayer Admitting clinician: Jason Price Discharging clinician: Jason Price Medical - DS: Meds - Discharge Medications Prescriptions: Cephalexin [Keflex] 500 mg PO BID #14 capsule Active and Home Medications: Home Medications Glucometer- Accu-check #1 each 11/29/15 [Rx Confirmed 02/05/17 Last Taken Unknown] lancets See Dose Instructions .ROUTE .MEDSUPPLY #100 each 12/01/15 [Rx Confirmed 02/05/17 Last Taken Unknown] blood sugar diagnostic strips See Dose Instructions .ROUTE .MEDSUPPLY #60 each 02/01/16 [Rx Confirmed 02/05/17 Last Taken Unknown] albuterol sulfate HFA 90 mcg/actuation aerosol inhaler 2 puff INHALATION Q6H PRN #18 g 03/05/16 [Rx Confirmed 03/18/17 Last Taken 03/11/17] Nebulizer with tubing and accessories #1 each 09/25/16 [Rx Confirmed 02/05/17 Last Taken Unknown] beclomethasone dipropionate 80 mcg/actuation aerosol inhaler 2 puff INHALATION BID #8.7 g 09/27/16 [Rx Confirmed 03/18/17 Last Taken 03/17/17] albuterol sulfate 2.5 mg/3 mL (0.083 %) solution for nebulization 2.5 mg INHALATION .Q4-6H PRN #3 ml 10/01/16 [Rx Confirmed 03/18/17 Last Taken 03/11/17] cholecalciferol (vitamin D3) 2,000 unit capsule 6,000 unit PO QDAY 01/04/17 [ History Confirmed 03/18/17 Last Taken 03/11/17] ferrous sulfate 325 mg (65 mg iron) tablet,delayed release 325 mg PO BID [History Confirmed 03/18/17 Last Taken 03/17/17] insulin lispro protamine-lispro 100 unit/mL (75-25) subcutaneous pen See Label Instructions SUB-Q QAM 01/04/17 [History Confirmed 03/18/17 Last Taken 03/17/17] lisinopril 10 mg tablet 5 mg PO BID #30 tab 01/04/17 [Rx Confirmed 03/18/17 Last Taken 03/17/17] magnesium oxide 400 mg capsule 400 mg PO BID 01/04/17 [History Confirmed Last Taken 03/17/17] metoprolol succinate ER 100 mg tablet,extended release 24 hr 50 mg PO BID tab 01/04/17 [History Confirmed 03/18/17 Last Taken 03/17/17] spironolactone 25 mg tablet 25 mg PO QDAY 01/04/17 [History Confirmed 03/18/17 Last Taken 03/17/17] thiamine HCl (vitamin B1) 100 mg tablet 200 mg PO QDAY tab 01/04/17 [History Confirmed 03/18/17 Last Taken 03/17/17] warfarin 3 mg tablet 3 mg PO QDAY tab 01/04/17 [History Confirmed 03/18/17 Last Taken 03/17/17] psyllium seed (sugar) oral powder 1 tbsp PO QDAY 02/05/17 [History Confirmed Last Taken 03/16/17] furosemide 40 mg tablet 40 mg PO QDAY tab 03/13/17 [History Confirmed 03/18/17 Last Taken 03/17/17] Medical - DS: Hosp Hospital course: Mr. Helms is a 47 year old female with h/o chf, afib, on coumadin, with therapeutic INR, presented to the ER with complaints of Dysfunctional Uterine bleed and severe anemia. Dysfunctional Uterine Bleed: Patient had prolonged uterine bleed for nearly 3 weeks with heavy bleeding. clots, using 10 pads and tampons, Treated with IV tranxemic acid, and reversal of anticoagulation. The patient was seen by Dr Anguiano, and he advised follow up in the clinc. Patient needed 3 blood transfusions to bring back her hb around 10.0 Acute blood loss anemia: due to above, s/p 3 units of transfusion. Plan was for 4 units, however on the 4th unit the patient developed shorteners of breath, and wheezing. the patient was given duonebs and steroids with improvement in her symptoms, 4th bag was not completed. Later patients reported that it may have been the a perfume that triggered the reaction. Reactive airway disease: During blood transfusion treated wtih steroids and duonebs, patient back to baseline at discharge. afib: home meds continued, coumadin stopped. Given high risk of CVA the patient has been advised to follow up with their guest services attendant within a week to determine further steps. UTI: Patient had elevated wbc on presentation, abnl UA, the patient also received steroids for reactiave airway disease and therefore her leucocytosis worsened, she is being treated with keflex for UTI, PCP is advised to check her cbc in 1-2 weeks to document improvement. The rest of the stay in the hospital was uneventful. No changes in home meds done besides stopping coumadin and initiation of keflex. Discharge diagnosis: Dysfunctional uterine bleed, UTI. - Time Spent with Patient Total time spent providing and/or coordinating discharge services: Greater than 30 minutes Medical - DS: Exam - Constitutional Vitals: Vital Signs Temp Pulse Pulse Resp BP Pulse Ox 03/20/17 15:47 75 16 03/20/17 12:00 97.1 F 109 H 18 119/51 95 03/20/17 11:12 75 13 03/20/17 07:40 97.3 F 103 H 16 91/47 96 03/20/17 07:20 92 H 16 94 03/20/17 03:53 97.5 F 104 H 16 92/48 95 03/20/17 00:00 97.5 F 97 H 20 80/60 95 03/19/17 22:08 101 H 18 03/19/17 22:01 96 03/19/17 20:00 100 03/19/17 19:42 97.0 F 92 H 18 119/73 96 03/19/17 17:04 71 16 Intake and Output 03/20/17 03/20/17 03/20/17 05:59 13:59 21:59 Intake Total 240 / 240 Output Total 900 / 900 800 / 800 Balance -660 / -660 -800 / -800 Intake: Oral 240 / 240 Output: Void Amount 900 / 900 800 / 800 Additional comments: Constitutional; Afebrile, cooperative, alert, not in distress. Eyes- No icterus, , No periorbital swelling Ears- Ext ear normal, hearing normal to conversation. Neck- Midline trachea, supple Respiratory system: Air Entry equal on both sides, No crackles or wheezing, no rhonchi. CVS- Rate normal rhythm irregular, S1,S2 heard, no gallop, no rub. Abdomen- Soft nontender abdomen, no organomegaly, no tenderness, no guarding or rigidity, [employer]BER [employer]NC[employer]- AOOx3, moving all extremities, no gross focal deficit noted. Medical - DS: Data Labs on day of discharge: Labs from last 24 hours 03/20/17 03/20/17 03/20/17 14:00 14:00 08:32 WBC 22.8 H RBC 3.32 L Hgb 10.0 L Hct 29.9 L MCV 90.1 MCH 30.1 MCHC 33.4 RDW 18.0 H Plt Count 306 MPV 9.1 Gran % 90.5 H Lymph % (Auto) 7.5 L [place] % (Auto) 2.0 Eos % (Auto) 0 Baso % (Auto) 0 Gran # 20.7 H Lymph # 1.7 [place] # 0.5 Eos # 0 Baso # 0 Total Counted Seg Neutrophils % Band Neutrophils % Lymphocytes % Monocytes % (Manual) Nucleated RBCs Platelet Estimate RBC Morphology Anisocytosis Macrocytosis PT INR Sodium 134 Potassium 4.9 Chloride 95 L Carbon Dioxide 17 L Anion Gap 22.0 H BUN 40 H Creatinine 1.7 H GFR Calculation 35 Glucose 337 H Uric Acid Calcium 9.4 Phosphorus Magnesium Total Bilirubin Direct Bilirubin GGT AST ALT Alkaline Phosphatase Lactate Dehydrogenase Total Protein Albumin Globulin Albumin/Globulin Ratio Triglycerides Procalcitonin Urine Color Yellow Urine Appearance Clear Urine pH 5.0 Ur Specific [place] 1.015 Urine Protein Neg Urine Glucose (UA) >=500 A Urine Ketones Neg Urine Occult Blood >=1.0 A Urine Nitrate Neg Urine Bilirubin Neg Urine Urobilinogen Neg Ur Leukocyte Esterase 500 A Urine RBC 4 H Urine WBC 21 H Ur Squamous Epith Cells 1 Urine Bacteria 0 Hyaline Casts 6 H Urine Mucus Few Ur Culture Indicated? Yes 03/20/17 03/20/17 03/20/17 04:00 03:38 03:38 WBC RBC Hgb Hct MCV MCH MCHC RDW Plt Count MPV Gran % Lymph % (Auto) [place] % (Auto) Eos % (Auto) Baso % (Auto) Gran # Lymph # [place] # Eos # Baso # Total Counted Seg Neutrophils % Band Neutrophils % Lymphocytes % Monocytes % (Manual) Nucleated RBCs Platelet Estimate RBC Morphology Anisocytosis Macrocytosis PT 14.1 INR 1.1 Sodium 134 Potassium 4.5 Chloride 96 Carbon Dioxide 16 L Anion Gap 22.0 H BUN 37 H Creatinine 1.7 H GFR Calculation 35 Glucose 326 H Uric Acid 13.5 H Calcium 9.3 Phosphorus 2.9 Magnesium 1.9 Total Bilirubin 0.3 Direct Bilirubin < 0.2 GGT 34 AST 11 ALT 11 Alkaline Phosphatase 73 Lactate Dehydrogenase 143 Total Protein 7.1 Albumin 3.7 Globulin 3.4 Albumin/Globulin Ratio 1.1 Triglycerides 95 Procalcitonin < 0.10 Urine Color Urine Appearance Urine pH Ur Specific [place] Urine Protein Urine Glucose (UA) Urine Ketones Urine Occult Blood Urine Nitrate Urine Bilirubin Urine Urobilinogen Ur Leukocyte Esterase Urine RBC Urine WBC Ur Squamous Epith Cells Urine Bacteria Hyaline Casts Urine Mucus Ur Culture Indicated? 03/20/17 03:38 WBC 16.1 H RBC 3.17 L Hgb 9.5 L Hct 28.4 L MCV 89.6 MCH 30.0 MCHC 33.5 RDW 17.0 H Plt Count 255 MPV 9.2 Gran % Lymph % (Auto) [place] % (Auto) Eos % (Auto) Baso % (Auto) Gran # Lymph # [place] # Eos # Baso # Total Counted 100 Seg Neutrophils % 86 H Band Neutrophils % 3 Lymphocytes % 10 L Monocytes % (Manual) 1 Nucleated RBCs 1 H Platelet Estimate Normal RBC Morphology Abnorm A Anisocytosis 1+ A Macrocytosis 1+ A PT INR Sodium Potassium Chloride Carbon Dioxide Anion Gap BUN Creatinine GFR Calculation Glucose Uric Acid Calcium Phosphorus Magnesium Total Bilirubin Direct Bilirubin GGT AST ALT Alkaline Phosphatase Lactate Dehydrogenase Total Protein Albumin Globulin Albumin/Globulin Ratio Triglycerides Procalcitonin Urine Color Urine Appearance Urine pH Ur Specific [place] Urine Protein Urine Glucose (UA) Urine Ketones Urine Occult Blood Urine Nitrate Urine Bilirubin Urine Urobilinogen Ur Leukocyte Esterase Urine RBC Urine WBC Ur Squamous Epith Cells Urine Bacteria Hyaline Casts Urine Mucus Ur Culture Indicated? Medical - DS: A/P - Patient/Caregiver Discharge Instructions Activity: increase activity as tolerated Diet: Cardiac Additional Instructions: Follow up with Dr Harvey in 3-5 days. 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 Prescriptions: Cephalexin [Keflex] 500 mg PO BID #14 capsule - Follow up Plan Follow up with: Sheri Mayer ARNP [Primary Care Provider] - Tyrese Calderon MD [Physician] - (Call to schedule a follow up appointment with Dr. Calderon upon discharge in one week.) Jacinto Manzo [Physician] - Disposition: Home, Self-Care Prognosis: Good Rehab Potential: Good I certify that the patient requires SNF services: No Overall status at discharge: patient is progressing back to baseline Medical - DS: Qual - VTE Deep Vein Thrombosis/Pulmonary Embolism Present on Admission: No
--- NOTE | 2017-03-20 16:24 | Ultrasound Report ---
CLINICAL INFORMATION: Vaginal bleeding COMPARISON: Pelvic CT from 02/07/2016 FINDINGS: The uterus is anteflexed and mildly enlarged: 9.5 x 5.5 cm. There is a 16 mm subserosal fibroid in the posterior mid uterine body. Endometrium is normal thickness: 10 mm. An 8 mm cyst noted within the mid endometrial cavity. Both ovaries are slightly enlarged: The right is 4.2 cm x 2.5 cm and the left is 4.2 cm x 4.9 cm. A solitary cyst on the left ovary has involuted from 5.[address] study to only 4.4 cm on today's exam. There are two cystic lesions on the right ovary: 1.8 cm and 2 cm, respectively, which have also decreased. Previously, the lesion measured 3.2 and 2.5 cm. Minor hemorrhage seen dependently within the cysts are compatible with hemorrhagic cyst. IMPRESSION: 1. Mildly enlarged anteflexed uterus suggesting adenomyosis. Did unchanged from the most recent CT. The 20 mm subserosal fibroid in the posterior mid uterine body. 2. 8 mm cyst in this central endometrial cavity. It is otherwise normal 3. Bilateral ovarian cyst which involuted modestly since a comparison CT from six weeks ago Interpreted and Authenticated by: Mark Schafefer 03/20/17
== END 2017-03-20 18:36 | disposition home or self-care (01) ==
LOC: ED 13:28 → ICU 13:28
PROVIDERS: ADMIT Internal Medicine; ATTEND Internal Medicine